=== PATIENT | male | born 1965 | race Caucasian/White ===

== ENCOUNTER 2022-01-28 21:43 | Emergency (ER) | payer SELFPAY ==
[~2022-01-28] VITALS: Ht 177.8 cm; Wt 118.2 kg
[2022-01-28] MEDS ORDERED: IBUPROFEN 600MG TABLET PO NR (23:30)
[2022-01-29] MEDS ORDERED: IBUP-2029 MT (01:24)
[2022-01-29] MEDS ORDERED: LIDO700A30 TP (01:24)
[2022-01-29 02:17] VITALS: BP 115/78
== END 2022-01-29 02:17 | disposition home or self-care (01) ==
LOC: ER 21:43
DX: M25.552 Pain in left hip (principal); M54.50 Low back pain, unspecified; V49.49XA Driver injured in collision with other motor vehicles in traffic accident, initial encounter; Y93.89 Activity, other specified; Y92.89 Other specified places as the place of occurrence of the external cause; Y99.8 Other external cause status; E11.9 Type 2 diabetes mellitus without complications
CPT/HCPCS: 71045; 72110; 72170; 99284